=== PATIENT | female | born 1990 | race Caucasian/White ===

== ENCOUNTER 2016-10-17 07:53 | Emergency (ER) | payer MEDICAID ==
[~2016-10-17] VITALS: Ht 157.5 cm; Wt 125.2 kg
[2016-10-17 08:08] VITALS: BP 139/75
--- NOTE | 2016-10-17 08:11 | NUR ---
PATIENT AMBULATED TO BED 3 AT THIS TIME.
--- NOTE | 2016-10-17 08:12 | NUR ---
26F BIB SELF C/O ACHING LEFT JAW PAIN, NON-RADIATING, 9/10 X YESTERDAY; PT DENIES TRAUMA OR INJURY TO FACE; NO SWELLING OR REDNESS NOTED TO SITE AT THIS TIME; PT STATED " I HAVE TWO TEETH ON THE TOP AND BOTTOM LEFT THAT NEED TO BE REMOVED. I THINK IT MAY BE FROM THAT"; A&OX4, PERRL, BL LUNG SOUNDS CLEAR, RR EVEN/UNLABORED, PT DENIES N/V/D AT THIS TIME; STEADY GAIT; PT RESTING IN BED W/ HOB ELEVATED AND IN LOWEST POSITION; POSITIONED FOR COMFORT; ER MD MADE AWARE OF STATUS. WILL CONTINUE TO MONITOR.
--- NOTE | 2016-10-17 08:23 | NUR ---
ER MD DR. FABIAN EVALUATING PT AT BEDSIDE.
[2016-10-17] MEDS ORDERED: KETOROLAC 60 MG/2 ML VIAL IM ONE (08:25)
[2016-10-17 08:46] VITALS: BP 120/73
--- NOTE | 2016-10-17 08:46 | NUR ---
Patient discharged with v/s stable. Written and verbal after care instructions given and explained. Patient alert, oriented and verbalized understanding of instructions. Ambulatory with steady gait. All questions addressed prior to discharge. ID band removed. Patient advised to follow up with PMD. Rx of NORCO 5MG-325MG TAB & MOTRIN 800MG given. Patient educated on indication of medication including possible reaction and side effects. Opportunity to ask questions provided and answered.
== END 2016-10-17 08:46 | disposition home or self-care (01) ==
LOC: MED 07:53
DX: R59.0 Localized enlarged lymph nodes (principal); F17.200 Nicotine dependence, unspecified, uncomplicated; I10 Essential (primary) hypertension; Z86.73 Personal history of transient ischemic attack (TIA), and cerebral infarction without residual deficits
CPT/HCPCS: 96372; 99283; J1885

== ENCOUNTER 2020-02-09 17:56 | Emergency (ER) | payer MEDICAID ==
[~2020-02-09] VITALS: Ht 162.6 cm; Wt 85.3 kg
[2020-02-09 18:00] VITALS: BP 128/85
--- NOTE | 2020-02-09 18:08 | NUR ---
Pt ambulated to restroom for collection of urine
--- NOTE | 2020-02-09 18:08 | NUR ---
PT AMB TO BED 7.
--- NOTE | 2020-02-09 18:14 | NUR ---
29 y/o female from home c/o sudden onset abd pain. Pt c/o abd pain s/p eating shrimp. Abd soft, round, nontender to palp. Pt states she "forced" herself to vomit due to pain. RR even and unlabored, awake and alert. vss medhx: stroke, seizures
[2020-02-09 18:34] VITALS: BP 128/85
--- NOTE | 2020-02-09 18:35 | NUR ---
Patient discharged with v/s stable. Written and verbal after care instructions given and explained. Patient alert, oriented and verbalized understanding of instructions. Ambulatory with steady gait. All questions addressed prior to discharge. ID band removed. Patient advised to follow up with PMD. Rx of pepcid 20mg, zofran 4mg, norco 5mg given. Patient educated on indication of medication including possible reaction and side effects. Opportunity to ask questions provided and answered.
== END 2020-02-09 18:35 | disposition home or self-care (01) ==
LOC: MED 17:56
DX: R10.9 Unspecified abdominal pain (principal); I10 Essential (primary) hypertension; Z86.73 Personal history of transient ischemic attack (TIA), and cerebral infarction without residual deficits
CPT/HCPCS: 99283

== ENCOUNTER 2020-03-17 19:27 | Emergency (ER) | payer MEDICAID ==
[~2020-03-17] VITALS: Ht 162.6 cm; Wt 82.1 kg
[2020-03-17 19:45] VITALS: BP 98/46
[2020-03-17] MEDS ORDERED: NACL 0.9% 1,000 ML IV ONE (20:05)
[2020-03-17] MEDS ORDERED: KETOROLAC 30 MG/ML VIAL IVP ONE (20:05)
--- NOTE | 2020-03-17 20:20 | NUR ---
ADMITTED PT ON BED 12. PT A/A/OX4, AMBULATORY. PT C/O ABDOMINAL PAIN WHICH STARTED AFTER THE PT ATE SALAD AND HAD 3 EPISODES OF LOOSE BM,DARK IN COLOR PER PT. ALSO STATED THAT SHE IS TAKING IRON PILLS FOR ANEMIA. OTHERWISE NO SIGN AND SYMPTOMS OF DISTRESS NOTED AT THIS TIME. STARTED AN IV ON THE LEFT HAND GAUGE 20.ALL LABS DRAWN ORDERED. TORADOL GIVEN FOR ABDOMINAL PAIN 04/30 ORDERED.IVF NS INFUSING ORDERED.
--- NOTE | 2020-03-17 20:30 | NUR ---
ALL LAB WORKS COLLECTED AND SENT TO THE LAB.
[2020-03-17 20:43] LABS: BASOPHILS % (AUTO) 0.4 % (0.0-2.0); EOSINOPHILS # (AUTO) 0.3 K/uL (0-0.4); EOSINOPHILS % (AUTO) 4.5 % (0.0-4.0); HEMATOCRIT 33.9 % (36-48); HEMOGLOBIN 10.7 g/dL (12.0-16.0); LYMPHOCYTES # (AUTO) 1.7 K/uL (2.5-16.5); LYMPHOCYTES % (AUTO) 22.1 % (20.5-51.1); MEAN CORPUSCULAR HEMOGLOBIN 23 pg (27-31); MEAN CORPUSCULAR HGB CONC 31 g/dL (33-37); MEAN CORPUSCULAR VOLUME 73.5 fL (80-94); MONOCYTES # (AUTO) 0.4 K/uL (0.8-1.0); MONOCYTES % (AUTO) 5.4 % (1.7-9.3); NEUTROPHILS # (AUTO) 5.2 K/uL (1.8-7.7); NEUTROPHILS % (AUTO) 67.6 % (42.2-75.2); PLATELET COUNT (AUTO) 237 K/uL (140-450); RED BLOOD CELL COUNT(AUTO) 4.62 MIL/uL (4.20-5.40); RED CELL DISTRIBUTION WIDTH 20.1 % (11.6-13.7); WHITE BLOOD COUNT (AUTO) 7.7 K/uL (4.8-10.8)
[2020-03-17 20:54] LABS: ALBUMIN 3.8 g/dL (3.4-5.0); ANION GAP 13.3 (8-16); CARBON DIOXIDE 26.5 mmol/L (21-32); CREATININE 0.8 mg/dL (0.6-1.3); POTASSIUM 3.8 mmol/L (3.5-5.1); TOTAL BILIRUBIN 0.2 mg/dL (0.0-1.0)
--- NOTE | 2020-03-17 20:57 | NUR ---
Ultrasound at bedside.
--- NOTE | 2020-03-17 20:59 | NUR ---
UTS AT THE BEDSIDE.
--- NOTE | 2020-03-17 21:10 | NUR ---
NS BOLUS FINISHED.
--- NOTE | 2020-03-17 21:22 | NUR ---
PT WALKED TO THE BATHROOM AND VOIDED.
[2020-03-17 22:45] VITALS: BP 98/46
--- NOTE | 2020-03-17 22:45 | NUR ---
Patient discharged with v/s stable. Written and verbal after care instructions given and explained. Patient alert, oriented and verbalized understanding of instructions. Ambulatory with steady gait. All questions addressed prior to discharge. ID band removed. Patient advised to follow up with PMD. Rx of ZOFRAN & MOTRIN given. Patient educated on indication of medication including possible reaction and side effects. Opportunity to ask questions provided and answered.
== END 2020-03-17 22:45 | disposition home or self-care (01) ==
LOC: MED 19:27
DX: N83.201 Unspecified ovarian cyst, right side (principal); K52.9 Noninfective gastroenteritis and colitis, unspecified; I10 Essential (primary) hypertension; R56.9 Unspecified convulsions; Z98.890 Other specified postprocedural states; Z86.73 Personal history of transient ischemic attack (TIA), and cerebral infarction without residual deficits
CPT/HCPCS: 36415; 76856; 80053; 85025; 96361; 96374; 99284; J1885; J7030; Q0092

== ENCOUNTER 2020-03-30 19:45 | Emergency (ER) | payer MEDICAID ==
[~2020-03-30] VITALS: Ht 154.9 cm; Wt 82.1 kg
[2020-03-30 19:50] VITALS: BP 136/78
--- NOTE | 2020-03-30 19:53 | NUR ---
ambulated to bed 11 with steady gait.
--- NOTE | 2020-03-30 20:05 | NUR ---
30 YO F BIB SELF FOR C/C OF 10/10 MID EPIGASTRIC PAIN X1.5 HOURS. PT STATES SHE HAS HAD N/V/D SINCE THE PAIN STARTED "OUT OF NO WHERE." DENIES FEVER, COUGH, SOB AND BODY ACHES. LBM WAS 1 HR AGO, LOOSE STOOL. PT STATES SHE TOOK IBUPROFEN 800MG AND 4MG OF ZOFRAN 45 MIN AGO WITHOUT RELIEF OF SYMPTOMS. PT RECENTLY HAS D/C FROM [facility] ER FOR OVARIAN CYSTS, STATES HER PAIN IS THE SAME THEN. NKA MED HX:OVARIAN CYST RX: ZOFRAN PRN
--- NOTE | 2020-03-30 20:08 | NUR ---
PT AMBULATED TO WITH STEADY GAIT TO PROVIDE URINE SAMPLE
[2020-03-30] MEDS ORDERED: KETOROLAC 15 MG/ML VIAL IVP ONE (20:40)
[2020-03-30] MEDS ORDERED: NACL 0.9% 1,000 ML IV ONE (20:40)
[2020-03-30] MEDS ORDERED: ONDANSETRON 4 MG/2 ML VIAL IVP ONE (20:40)
[2020-03-30] MEDS ORDERED: PIPERACILLIN/TAZOBACTAM 3.375 GM VIAL IV ONE (21:00)
[2020-03-30] MEDS ORDERED: cefTRIAXone 1,000 MG VIAL ONE (21:03)
--- NOTE | 2020-03-30 21:15 | NUR ---
PT STATES HER PAIN IS NOW 01/28. DENIES NEEDING FURTHUR PAIN MEDS.
--- NOTE | 2020-03-30 21:35 | NUR ---
ERMD AT BEDSIDE
[2020-03-30 22:14] VITALS: BP 129/73
--- NOTE | 2020-03-30 22:14 | NUR ---
Patient discharged with v/s stable. Written and verbal after care instructions given and explained. Patient alert, oriented and verbalized understanding of instructions. Ambulatory with steady gait. All questions addressed prior to discharge. ID band removed. Patient advised to follow up with PMD. Rx of CEPHALEXIN, EXTRA STRENGTH TYLENOL given. Patient educated on indication of medication including possible reaction and side effects. Opportunity to ask questions provided and answered.
== END 2020-03-30 22:14 | disposition home or self-care (01) ==
LOC: MED 19:45
DX: K52.9 Noninfective gastroenteritis and colitis, unspecified (principal); N39.0 Urinary tract infection, site not specified; I63.9 Cerebral infarction, unspecified; N83.209 Unspecified ovarian cyst, unspecified side; R56.9 Unspecified convulsions; Z98.890 Other specified postprocedural states
CPT/HCPCS: 81002; 81025; 96361; 96365; 96375; 99284; J0696; J1885; J2405; J7030; J2543

== ENCOUNTER 2020-04-27 12:24 | Emergency (ER) | payer MEDICAID ==
[~2020-04-27] VITALS: Ht 162.6 cm; Wt 81.2 kg
[2020-04-27 12:36] VITALS: BP 119/70
--- NOTE | 2020-04-27 12:49 | NUR ---
PT IN FOR N/V X1DAY AND ABDOMINAL PAIN. PATIENT CURRENTLY WITH 10/10 PAIN THROUGHOUT ABDOMEN, WITH TENDERNESS AND GUARDING ON ASSESSMENT. PT ALSO STATES DIARRHEA YESTERDAY BUT NONE TODAY. PT STATES MENSTRAL CYCLE IS LATE BUT DENIES POSSIBILITY THAT SHE IS . RESTING IN BED AT THIS TIME WITHOUT ANY SIGNS OF DISTRESS.
[2020-04-27] MEDS: KETOROLAC 30 MG/ML VIAL IM ONE (13:22)
--- NOTE | 2020-04-27 13:57 | NUR ---
PT REXAMINED, STATES NO RELIEF FROM PAIN MEDS.
[2020-04-27 14:22] VITALS: BP 120/72
--- NOTE | 2020-04-27 14:22 | NUR ---
Patient discharged with v/s stable. Written and verbal after care instructions given and explained. Patient alert, oriented and verbalized understanding of instructions. Ambulatory with steady gait. All questions addressed prior to discharge. ID band removed. Patient advised to follow up with PMD. Rx of NAPROSIDABENTYL given. Patient educated on indication of medication including possible reaction and side effects. Opportunity to ask questions provided and answered.
== END 2020-04-27 14:22 | disposition home or self-care (01) ==
LOC: MED 12:24
DX: R10.9 Unspecified abdominal pain (principal); R11.2 Nausea with vomiting, unspecified; R19.7 Diarrhea, unspecified; I63.9 Cerebral infarction, unspecified; R56.9 Unspecified convulsions; Z98.890 Other specified postprocedural states
CPT/HCPCS: 81002; 81025; 96372; 99283; J1885

== ENCOUNTER 2020-07-12 17:49 | Emergency (ER) | payer MEDICAID ==
[~2020-07-12] VITALS: Ht 162.6 cm; Wt 79.4 kg
[2020-07-12 17:54] VITALS: BP 137/74
--- NOTE | 2020-07-12 18:02 | NUR ---
30/F BIB SELF C/O NAUSEA, GENERALIZED ABDOMINAL PAIN X TODAY. PMH: GALL STONE
--- NOTE | 2020-07-12 19:00 | NUR ---
PATIENT CALLED [facility] ON CHAIR , NO RESPONSE
--- NOTE | 2020-07-12 19:00 | NUR ---
Silvia irvin in [facility] - 07/13/20 at 0620 by LILIA CALLED FOR THE SECOND TIME , NO RESPONSE
--- NOTE | 2020-07-12 19:00 | NUR ---
PATIENT LEFT WITHOUT BEING SEEN BY DR. TAYLOR. NO FURTHER CARE PROVIDED FOR PATIENT.
--- NOTE | 2020-07-12 19:05 | NUR ---
CALLED FOR THE SECOND TIME NO RESPONSE
--- NOTE | 2020-07-12 19:10 | NUR ---
CALLED FOR THE THIRD TIME, NO RESPONSE
== END 2020-07-12 19:00 | disposition left against medical advice (07) ==
LOC: MED 17:49
DX: Z53.21 Procedure and treatment not carried out due to patient leaving prior to being seen by health care provider (principal)
CPT/HCPCS: 81002; 81025

== ENCOUNTER 2020-10-28 15:18 | Emergency (ER) | payer MEDICAID ==
[~2020-10-28] VITALS: Ht 162.6 cm; Wt 80.7 kg
[2020-10-28 15:22] VITALS: BP 114/74
--- NOTE | 2020-10-28 15:38 | NUR ---
FERNANDA ALVAREZ AT BEDSIDE EXAMINING PT
--- NOTE | 2020-10-28 15:39 | NUR ---
30 F BIB self c/c 10 abd pain that radiates to the back x1 day aggravated by eating, neck pain, bloating especially after meals, right arm pain, blurry vision today at work, and constipation x1week. Pt reports nause but denies vomitting and diarrhea, SOB, chest pain. PMH: Gallstones, pre-eclampsia, stroke and seizure during SurHX: 4 C-sections NKA LMP: End of September RX: Denies
[2020-10-28] MEDS ORDERED: HYDROcodone/APAP 5/325 MG 1 TAB TAB PO ONE (15:45)
--- NOTE | 2020-10-28 15:57 | NUR ---
LAB AT BEDSIDE
--- NOTE | 2020-10-28 15:59 | NUR ---
US AT BEDSIDE
--- NOTE | 2020-10-28 16:02 | NUR ---
lab at bedside.
--- NOTE | 2020-10-28 16:02 | NUR ---
rad at bedside.
[2020-10-28] MEDS ORDERED: ACETAMINOPHEN/CODEINE 300/30MG 1 TAB PO ONE (16:05)
[2020-10-28 16:22] LABS: BASOPHILS % (AUTO) 0.8 % (0.0-2.0); EOSINOPHILS # (AUTO) 0.1 K/uL (0-0.4); EOSINOPHILS % (AUTO) 2.8 % (0.0-4.0); HEMATOCRIT 30.8 % (36-48); HEMOGLOBIN 9.6 g/dL (12.0-16.0); LYMPHOCYTES % (AUTO) 38.7 % (20.5-51.1); MEAN CORPUSCULAR HEMOGLOBIN 23 pg (27-31); MEAN CORPUSCULAR HGB CONC 31 g/dL (33-37); MEAN CORPUSCULAR VOLUME 74.3 fL (80-94); MONOCYTES # (AUTO) 0.5 K/uL (0.8-1.0); MONOCYTES % (AUTO) 9.3 % (1.7-9.3); NEUTROPHILS # (AUTO) 2.4 K/uL (1.8-7.7); NEUTROPHILS % (AUTO) 48.4 % (42.2-75.2); PLATELET COUNT (AUTO) 247 K/uL (140-450); RED BLOOD CELL COUNT(AUTO) 4.14 MIL/uL (4.20-5.40); RED CELL DISTRIBUTION WIDTH 17.6 % (11.6-13.7)
[2020-10-28 16:35] LABS: ALBUMIN 3.6 g/dL (3.4-5.0); CARBON DIOXIDE 26.5 mmol/L (21-32); CREATININE 0.7 mg/dL (0.6-1.3); POTASSIUM 3.5 mmol/L (3.5-5.1); TOTAL BILIRUBIN 0.2 mg/dL (0.0-1.0)
[2020-10-28] MEDS ORDERED: KETOROLAC 30 MG/ML VIAL IM ONE (17:20)
[2020-10-28] MEDS ORDERED: MORPHINE SULFATE 4 MG/ML SYR IM ONE (17:20)
--- NOTE | 2020-10-28 17:23 | NUR ---
Pt being taken to CT.
--- NOTE | 2020-10-28 17:37 | NUR ---
pt returned from ct via wheelchair
[2020-10-28] MEDS ORDERED: ACET-9800 PO (18:16)
[2020-10-28] MEDS ORDERED: POLY17PD46 PO (18:16)
[2020-10-28] MEDS ORDERED: MAG-27 PO (18:16)
[2020-10-28 18:23] VITALS: BP 105/60
--- NOTE | 2020-10-28 18:23 | NUR ---
Patient discharged with v/s stable. Written and verbal after care instructions given and explained. Patient alert, oriented and verbalized understanding of instructions. Ambulatory with steady gait. All questions addressed prior to discharge. ID band removed. Patient advised to follow up with PMD. Rx of Acetaminophen, Mylanta Maximum Strength, Miralax given. Patient educated on indication of medication including possible reaction and side effects. Opportunity to ask questions provided and answered.
== END 2020-10-28 18:23 | disposition home or self-care (01) ==
LOC: MED 15:18
DX: K80.80 Other cholelithiasis without obstruction (principal); Z86.73 Personal history of transient ischemic attack (TIA), and cerebral infarction without residual deficits
CPT/HCPCS: 36415; 74176; 76705; 80053; 81002; 81025; 83690; 85025; 99285; J2270; J1885

== ENCOUNTER 2020-11-23 14:49 | Emergency (ER) | payer MEDICAID ==
[~2020-11-23 14:49] MED LIST: ACET-9800 PO; MAG-27 PO; POLY17PD46 PO
--- NOTE | 2020-11-23 15:09 | NUR ---
PATIENT LEFT WITHOUT BEING TRIAGED.
== END 2020-11-23 15:09 | disposition left against medical advice (07) ==
LOC: MED 14:49
DX: Z53.21 Procedure and treatment not carried out due to patient leaving prior to being seen by health care provider (principal)

== ENCOUNTER 2021-01-27 18:17 | Emergency (ER) | payer MEDICAID ==
[~2021-01-27] VITALS: Ht 162.6 cm; Wt 79.4 kg
[2021-01-27 18:48] VITALS: BP 118/100
--- NOTE | 2021-01-27 19:45 | NUR ---
RECEIVED IN BED 2 FROM LOBBY WITH C/O HEADACHE AND FACIAL PAIN SINCEE YESTERDAY . PT STATES FACIAL PAIN BEGIND IN UPPER GUMS . SKIN IS PINK/WARM/DRY; AAOX4 WITH EVEN AND STEADY GAIT; PT DENIES ANY FEVER, CP, SOB, OR COUGH AT THIS TIME; VSS; PATIENT POSITIONED FOR COMFORT; HOB ELEVATED; BED DOWN. ER MD MADE AWARE OF PT STATUS.
[2021-01-27] MEDS ORDERED: HYDROcodone/APAP 5/325 MG 1 TAB TAB PO ONE (20:25)
[2021-01-27] MEDS ORDERED: ONDANSETRON 4 MG ODT PO ONE (20:25)
--- NOTE | 2021-01-27 20:40 | NUR ---
MEDICATED ORDERED FOR PAIN. PT IS ANXIOUS TO LEAVE.
[2021-01-27] MEDS ORDERED: ACET-8386 PO (21:16)
[2021-01-27] MEDS ORDERED: PENI500T20 PO (21:16)
[2021-01-27 21:22] VITALS: BP 118/100
--- NOTE | 2021-01-27 21:22 | NUR ---
Patient discharged with v/s stable. Written and verbal after care instructions given and explained. Patient alert, oriented and verbalized understanding of instructions. Ambulatory with steady gait. All questions addressed prior to discharge. ID band removed. Patient advised to follow up with PMD. Rx of HYDROCODONE & PEN VK given. Patient educated on indication of medication including possible reaction and side effects. Opportunity to ask questions provided and answered.
== END 2021-01-27 21:22 | disposition home or self-care (01) ==
LOC: MED 18:17
DX: R22.0 Localized swelling, mass and lump, head (principal); R51.9 Headache, unspecified; Z86.73 Personal history of transient ischemic attack (TIA), and cerebral infarction without residual deficits; Z79.899 Other long term (current) drug therapy
CPT/HCPCS: 99283; Q0162

== ENCOUNTER 2021-07-11 08:29 | Emergency (ER) | payer MEDICAID, SELFPAY ==
[~2021-07-11] VITALS: Ht 162.6 cm; Wt 99.8 kg
[~2021-07-11 08:29] MED LIST changes: +ACET-8386 PO; +PENI500T20 PO
[2021-07-11 08:44] VITALS: BP 121/80
--- NOTE | 2021-07-11 08:56 | NUR ---
PT AMBULATED TO BED STEADY GAIT
--- NOTE | 2021-07-11 09:00 | NUR ---
DR CODY AT BEDSIDE EXAMINING PT
--- NOTE | 2021-07-11 09:03 | NUR ---
31 Y/O FEMALE WITH DYSURIA, LOWER BACK PAIN, SUBJECTIVE FEVER, CHILLS, LANGE, VAGINAL ODOR/DISCHARGE X2 DAYS. DENIES N/V AT THIS TIME. PT STATES 10/10 PAIN, WITH CHEST PAIN, COUGH AND CONGESTION. LUNG SOUNDS CLEAR. ABD SOFT NON TENDER. VSS. PMH: GALLSTONES NKA
[2021-07-11] MEDS ORDERED: KETOROLAC 30 MG/ML VIAL IM ONE (09:10)
--- NOTE | 2021-07-11 09:15 | NUR ---
ALEX SWAB COLLECTED AND SENT TO LAB
--- NOTE | 2021-07-11 09:21 | NUR ---
XRAY AT BEDSIDE
[2021-07-11] MEDS ORDERED: ROBAC PO (10:25)
[2021-07-11] MEDS ORDERED: NAPR-54 PO (10:25)
[2021-07-11 10:42] VITALS: BP 121/80
--- NOTE | 2021-07-11 10:42 | NUR ---
Patient discharged with v/s stable. Written and verbal after care instructions given and explained. Patient alert, oriented and verbalized understanding of instructions. Ambulatory with steady gait. All questions addressed prior to discharge. ID band removed. Patient advised to follow up with PMD. Rx of NAPROSYN AND GUAIFENESIN given. Patient educated on indication of medication including possible reaction and side effects. Opportunity to ask questions provided and answered.
== END 2021-07-11 10:42 | disposition home or self-care (01) ==
LOC: MED 08:29
DX: U07.1 COVID-19 (principal); F17.210 Nicotine dependence, cigarettes, uncomplicated; Z86.73 Personal history of transient ischemic attack (TIA), and cerebral infarction without residual deficits; Z79.899 Other long term (current) drug therapy; Z20.822 Contact with and (suspected) exposure to COVID-19
CPT/HCPCS: 71045; 81002; 81025; 87426; 96372; 99284; J1885; Q0092

== ENCOUNTER 2021-09-28 07:21 | Emergency (ER) | payer MEDICAID, SELFPAY ==
[~2021-09-28] VITALS: Ht 162.6 cm; Wt 97.6 kg
[~2021-09-28 07:21] MED LIST changes: +NAPR-54 PO; +ROBAC PO
[2021-09-28 07:30] VITALS: BP 122/74
--- NOTE | 2021-09-28 07:34 | NUR ---
PATIENT AMBULATED TO BED 12.
[2021-09-28] MEDS ORDERED: IBUPROFEN 400 MG TAB PO ONE (08:00)
--- NOTE | 2021-09-28 08:10 | NUR ---
31 Y/O FEMALE C/O ABD PAIN X 1 DAY. 8/10 PRESSURE WITH C/O NAUSEA AND CONSTIPATION. ABD SOFT NON TENDER. MED HX: DENIES NKA
[2021-09-28] MEDS ORDERED: NAPR-1704 PO (08:24)
--- NOTE | 2021-09-28 08:30 | NUR ---
Patient discharged, stable. Written and verbal after care instructions given and explained. Patient alert, oriented and verbalized understanding of instructions. Ambulatory with steady gait. All questions addressed prior to discharge. ID band removed. Patient advised to follow up with PMD. Rx of NAPROXEN given. Patient educated on indication of medication including possible reaction and side effects. Opportunity to ask questions provided and answered.
[2021-09-28 08:31] VITALS: BP 122/74
[2021-09-28 09:01] LABS: APPEARANCE,URINE HAZY (CLEAR); BILIRUBIN,URINE NEGATIVE (NEGATIVE); BLOOD, URINE NEGATIVE (NEGATIVE); COLOR,URINE YELLOW (YELLOW); LEUKOCYTE ESTERASE ,URINE NEGATIVE (NEGATIVE); NITRITE, URINE POSITIVE (NEGATIVE); PH,URINE 7.5 (5.0-9.0); UGLUCOSE NEGATIVE (NEGATIVE)
[2021-09-28 09:55] LABS: RBC,URINE 0-5 /HPF (0-5)
[2021-09-28 09:56] LABS: CALCIUM OXALATE CRYSTALS,UR None Seen /HPF (None Seen); COARSE GRANULAR CASTS,URINE None Seen /LPF (None Seen); FINE GRANULAR CASTS,URINE None Seen /LPF (None Seen); HYALINE CASTS, URINE None Seen /LPF (None Seen); OTHER CASTS, URINE None Seen /LPF (None Seen); OTHER CRYSTALS,URINE None Seen /HPF (None Seen); RED BLOOD CELL CASTS,URINE None Seen /LPF (None Seen); TRICHOMONAS,URINE None Seen /HPF (None Seen); TRIPLE PHOSPHATE CRYSTAL,UR None Seen /HPF (None Seen); URIC ACID CRYSTALS,URINE None Seen /HPF (None Seen); URINE AMORPHOUS URATE None Seen /HPF (None Seen); WAXY CASTS,URINE None Seen /LPF (None Seen); WBC,URINE 0-5 /HPF (0-5); YEAST,URINE None Seen /HPF (None Seen)
== END 2021-09-28 08:31 | disposition home or self-care (01) ==
LOC: MED 07:21
DX: R10.2 Pelvic and perineal pain (principal); R11.0 Nausea; R14.0 Abdominal distension (gaseous); F17.210 Nicotine dependence, cigarettes, uncomplicated; Z98.890 Other specified postprocedural states; Z79.899 Other long term (current) drug therapy
CPT/HCPCS: 36415; 81001; 81025; 87086; 87491; 99283

== ENCOUNTER 2021-11-06 11:29 | Emergency (ER) | payer MEDICAID ==
[~2021-11-06] VITALS: Ht 162.6 cm; Wt 96.6 kg
[~2021-11-06 11:29] MED LIST changes: +NAPR-1704 PO
[2021-11-06 11:36] VITALS: BP 128/82
--- NOTE | 2021-11-06 11:57 | NUR ---
pt c/o abdominal pain, states pain has improved and requesting a work noted.
[2021-11-06] MEDS ORDERED: ONDA-188 PO (12:13)
[2021-11-06] MEDS ORDERED: ACET-10509 PO (12:13)
--- NOTE | 2021-11-06 12:14 | NUR ---
Patient discharged with v/s stable. Written and verbal after care instructions given and explained. Patient verbalized understanding. Ambulatory with steady gait. All questions addressed prior to discharge. Advised to follow up with PMD.
== END 2021-11-06 12:14 | disposition home or self-care (01) ==
LOC: MED 11:29
DX: R10.9 Unspecified abdominal pain (principal); Z79.899 Other long term (current) drug therapy; Z86.73 Personal history of transient ischemic attack (TIA), and cerebral infarction without residual deficits
CPT/HCPCS: 81025; 99283

== ENCOUNTER 2021-11-28 11:29 | Emergency (ER) | payer MEDICAID ==
[~2021-11-28] VITALS: Ht 165.1 cm; Wt 98.0 kg
[~2021-11-28 11:29] MED LIST changes: +ACET-10509 PO; +ONDA-188 PO
[2021-11-28 11:35] VITALS: BP 127/95
--- NOTE | 2021-11-28 11:38 | NUR ---
PT AMBULATED TO ER BED 11 WITH A STEADY GAIT.
--- NOTE | 2021-11-28 11:39 | NUR ---
31 Y/O FEMALE C/O THROAT PAIN 03/31 X2DAYS DESCRIBES TIGHTNESS, STATES "IT FEELS LIKE SOMETHING IS STUCK THERE". DENIES N/V. DENIES FEVER/CHILLS. SPO2 100% ON RA. DENIES PMH NKA
[2021-11-28] MEDS ORDERED: IBUP-2213 PO (12:37)
--- NOTE | 2021-11-28 12:39 | NUR ---
LI JOHNSON COLLECTED AND WALKED TO LAB
[2021-11-28 12:52] VITALS: BP 127/95
--- NOTE | 2021-11-28 12:53 | NUR ---
Patient discharged with v/s stable. Written and verbal after care instructions given FOR PHARYNGITIS AND HOARSNESS and explained. Patient alert, oriented and verbalized understanding of instructions. Ambulatory with steady gait. All questions addressed prior to discharge. ID band removed. Patient advised to follow up with PMD. Rx of IBUPORFEN given. Patient educated on indication of medication including possible reaction and side effects. Opportunity to ask questions provided and answered.
== END 2021-11-28 12:52 | disposition home or self-care (01) ==
LOC: MED 11:29
DX: J02.9 Acute pharyngitis, unspecified (principal); Z20.822 Contact with and (suspected) exposure to COVID-19; R49.0 Dysphonia; Z01.84 Encounter for antibody response examination; Z86.73 Personal history of transient ischemic attack (TIA), and cerebral infarction without residual deficits; Z79.899 Other long term (current) drug therapy
CPT/HCPCS: 99283

== ENCOUNTER 2022-08-27 09:38 | Emergency (ER) | payer MEDICAID ==
[~2022-08-27] VITALS: Ht 167.6 cm; Wt 114.8 kg
[~2022-08-27 09:38] MED LIST changes: -ACET-8386 PO; +ACET-8905 PO; +IBUP-2213 PO
[2022-08-27 09:44] VITALS: BP 122/73
--- NOTE | 2022-08-27 09:47 | NUR ---
Patient ambulated to bed 7.
--- NOTE | 2022-08-27 10:05 | NUR ---
32 y/o female bib self with c/o cough, subjective fever and diarrhea x yesterday. Patient is taking Tylenol for symptoms. Patient is requesting a COVID test because her nieces are sick with similar symptoms. Medical History: Denies NKDA
--- NOTE | 2022-08-27 10:50 | NUR ---
X-Ray at bedside.
[2022-08-27] MEDS ORDERED: BENZ200C4 PO (11:22)
[2022-08-27] MEDS ORDERED: ALBU0.0912 IH (11:22)
[2022-08-27 11:42] VITALS: BP 143/81
--- NOTE | 2022-08-27 11:42 | NUR ---
Patient discharged with v/s stable. Written and verbal after care instructions given. Patient alert, oriented and verbalized understanding of instructions. Ambulatory with steady gait. All questions addressed prior to discharge. ID band removed. Patient advised to follow up with PMD. Rx of Proventil and Benzonatate given. Opportunity to ask questions provided and answered. WORK NOTE HANDED TO PATIENT.
--- NOTE | 2022-08-27 12:00 | NUR ---
The patient's care was reviewed and supervised by Mily Rendon RN.
== END 2022-08-27 11:42 | disposition home or self-care (01) ==
LOC: MED 09:38
DX: J06.9 Acute upper respiratory infection, unspecified (principal); Z20.822 Contact with and (suspected) exposure to COVID-19; R05.9 Cough, unspecified; R50.9 Fever, unspecified; M79.10 Myalgia, unspecified site; F17.210 Nicotine dependence, cigarettes, uncomplicated; Z79.899 Other long term (current) drug therapy; Z86.73 Personal history of transient ischemic attack (TIA), and cerebral infarction without residual deficits
CPT/HCPCS: 71045; 87426; 87804; 99284; Q0092

== ENCOUNTER 2022-11-27 09:31 | Emergency (ER) | payer MEDICAID ==
[~2022-11-27] VITALS: Ht 162.6 cm; Wt 122.2 kg
[~2022-11-27 09:31] MED LIST changes: +ALBU0.0912 IH; +BENZ200C4 PO
[2022-11-27 09:45] VITALS: BP 142/80
--- NOTE | 2022-11-27 09:52 | NUR ---
The patient's care was reviewed and supervised by JA FANG RN.
[2022-11-27] MEDS ORDERED: ACET-10509 PO (10:08)
[2022-11-27] MEDS ORDERED: PROM118S5 PO (10:08)
[2022-11-27] MEDS ORDERED: IBUP-2213 PO (10:08)
[2022-11-27] MEDS ORDERED: BENZ-300 PO (10:08)
--- NOTE | 2022-11-27 10:24 | NUR ---
SPECIMENS FOR THROAT AND NOSE FLUE AND STREP COLLECTED AND SENT TO LAB ACCORDING TO PROTOCOL
--- NOTE | 2022-11-27 10:34 | NUR ---
Patient discharged with v/s stable. Written and verbal after care instructions FOR PHARYNGITIS given and explained. Patient alert, oriented and verbalized understanding of instructions. Ambulatory with steady gait. All questions addressed prior to discharge. ID band removed. Patient advised to follow up with PMD. Rx of IBUPROFEN,BENZOCAINE,TYLENOL XTRA STRENGTH AND PROMETHAZINE given. Opportunity to ask questions provided and answered.
== END 2022-11-27 10:34 | disposition home or self-care (01) ==
LOC: MED 09:31
DX: J02.9 Acute pharyngitis, unspecified (principal); B97.89 Other viral agents as the cause of diseases classified elsewhere; Z20.822 Contact with and (suspected) exposure to COVID-19; Z79.899 Other long term (current) drug therapy; Z86.73 Personal history of transient ischemic attack (TIA), and cerebral infarction without residual deficits
CPT/HCPCS: 87081; 99283

== ENCOUNTER 2023-01-28 07:30 | Emergency (ER) | payer MEDICAID ==
[~2023-01-28] VITALS: Ht 167.6 cm; Wt 106.1 kg
[~2023-01-28 07:30] MED LIST changes: +BENZ-300 PO; +PROM118S5 PO
[2023-01-28 08:05] VITALS: BP 107/73; PULSE 86; RESP 18; TEMP 97.6; O2SAT 98
--- NOTE | 2023-01-28 10:05 | NUR ---
PT IN CHAIR C. COVID AND FLU SWABS SENT TO THE LAB.
[2023-01-28] MEDS ORDERED: NIRM1TAB5 PO (11:12)
[2023-01-28] MEDS ORDERED: BENZ200C4 PO (11:13)
--- NOTE | 2023-01-28 11:27 | NUR ---
MD WITH PT TO DISCUSS TEST RESULTS AND [facility] PLAN
== END 2023-01-28 11:27 | disposition home or self-care (01) ==
LOC: MED 07:30
DX: U07.1 COVID-19 (principal); F17.210 Nicotine dependence, cigarettes, uncomplicated; Z79.899 Other long term (current) drug therapy; Z86.73 Personal history of transient ischemic attack (TIA), and cerebral infarction without residual deficits
CPT/HCPCS: 99283

== ENCOUNTER 2023-07-18 02:15 | Emergency (ER) | payer SELFPAY ==
[~2023-07-18] VITALS: Ht 157.5 cm; Wt 130.6 kg
[~2023-07-18 02:15] MED LIST changes: +NIRM1TAB5 PO
[2023-07-18 03:10] VITALS: BP 105/76; PULSE 102; RESP 20; TEMP 97.9; O2SAT 98
[2023-07-18] MEDS ORDERED: ACETAMINOPHEN 325 MG TAB PO ONE (03:15)
[2023-07-18] MEDS ORDERED: ACETAMINOPHEN EXTRA STRENGTH 500 MG TAB ONE (03:19)
[2023-07-18 03:46] LABS: FLU B ANTIGEN NEGATIVE (NEGATIVE)
[2023-07-18 03:47] LABS: FLU A ANTIGEN POSITIVE (NEGATIVE)
[2023-07-18] MEDS ORDERED: ONDANSETRON 4 MG ODT PO ONE (04:40)
[2023-07-18] MEDS ORDERED: KETOROLAC 30 MG/ML VIAL IM ONE (04:40)
[2023-07-18] MEDS ORDERED: ONDA-188 PO (04:42)
[2023-07-18] MEDS ORDERED: TAM75 PO (04:42)
[2023-07-18 05:03] VITALS: BP 105/76; PULSE 102; RESP 20; TEMP 97.9; O2SAT 98
== END 2023-07-18 05:03 | disposition home or self-care (01) ==
LOC: MED 02:15
DX: J06.9 Acute upper respiratory infection, unspecified (principal); I10 Essential (primary) hypertension; G51.0 Bell's palsy; Z20.822 Contact with and (suspected) exposure to COVID-19; R00.0 Tachycardia, unspecified; Z86.69 Personal history of other diseases of the nervous system and sense organs; Z86.73 Personal history of transient ischemic attack (TIA), and cerebral infarction without residual deficits; Z79.899 Other long term (current) drug therapy; Z79.1 Long term (current) use of non-steroidal anti-inflammatories (NSAID); Z79.2 Long term (current) use of antibiotics
CPT/HCPCS: 87426; 87804; 96372; 99283; J1885; Q0162

== ENCOUNTER 2023-11-21 19:09 | Emergency (ER) | payer MEDICAID ==
[~2023-11-21] VITALS: Ht 162.6 cm; Wt 133.0 kg
[~2023-11-21 19:09] MED LIST changes: +NAPR-337 PO; -NAPR-54 PO; +TAM75 PO
[2023-11-21 19:15] VITALS: BP 120/74; PULSE 78; RESP 17; TEMP 97.7; O2SAT 100
[2023-11-21 19:37] VITALS: O2SAT 100
[2023-11-21 20:12] LABS: BASOPHILS % (AUTO) 0.5 % (0.0-2.0); EOSINOPHILS # (AUTO) 0.1 K/uL (0-0.4); EOSINOPHILS % (AUTO) 0.8 % (0.0-4.0); HEMATOCRIT 38.9 % (36-48); HEMOGLOBIN 12.8 g/dL (12.0-16.0); LYMPHOCYTES # (AUTO) 1.9 K/uL (2.5-16.5); LYMPHOCYTES % (AUTO) 19.7 % (20.5-51.1); MEAN CORPUSCULAR HEMOGLOBIN 26 pg (27-31); MEAN CORPUSCULAR HGB CONC 33 g/dL (33-37); MEAN CORPUSCULAR VOLUME 78.7 fL (80-94); MONOCYTES # (AUTO) 0.5 K/uL (0.8-1.0); MONOCYTES % (AUTO) 5.2 % (1.7-9.3); NEUTROPHILS # (AUTO) 7.1 K/uL (1.8-7.7); NEUTROPHILS % (AUTO) 73.8 % (42.2-75.2); PLATELET COUNT (AUTO) 251 K/uL (140-450); RED BLOOD CELL COUNT(AUTO) 4.95 MIL/uL (4.20-5.40); WHITE BLOOD COUNT (AUTO) 9.7 K/uL (4.8-10.8)
[2023-11-21 20:28] LABS: ANION GAP 14.6 (8-16); CALCIUM 9.1 mg/dL (8.5-10.1); CARBON DIOXIDE 25.6 mmol/L (21-32); CREATININE 0.9 mg/dL (0.6-1.3); POTASSIUM 4.2 mmol/L (3.5-5.1)
[2023-11-21 20:42] LABS: MAGNESIUM 1.9 mg/dL (1.8-2.4); PHOSPHORUS 3.5 mg/dL (2.5-4.9); THYROID STIMULATING HORMONE 6.02 uIU/mL (0.34-3.74)
[2023-11-21 21:01] VITALS: BP 148/83; PULSE 68; RESP 16; TEMP 98.2; O2SAT 100
== END 2023-11-21 21:01 | disposition home or self-care (01) ==
LOC: MED 19:09
DX: R00.2 Palpitations (principal); R42 Dizziness and giddiness; I10 Essential (primary) hypertension; Z86.69 Personal history of other diseases of the nervous system and sense organs; Z79.899 Other long term (current) drug therapy
CPT/HCPCS: 36415; 80048; 81025; 83735; 84100; 84443; 84484; 85025; 93005; 99284

== ENCOUNTER 2023-11-27 22:50 | Emergency (ER) | payer MEDICAID ==
[~2023-11-27] VITALS: Ht 162.6 cm; Wt 132.9 kg
[2023-11-27 22:55] VITALS: BP 118/87; PULSE 69; RESP 18; TEMP 97.8; O2SAT 99
[2023-11-27 23:18] LABS: BASOPHILS % (AUTO) 0.6 % (0.0-2.0); EOSINOPHILS # (AUTO) 0.1 K/uL (0-0.4); EOSINOPHILS % (AUTO) 1.2 % (0.0-4.0); HEMATOCRIT 38.7 % (36-48); HEMOGLOBIN 12.6 g/dL (12.0-16.0); LYMPHOCYTES # (AUTO) 1.9 K/uL (2.5-16.5); LYMPHOCYTES % (AUTO) 27.1 % (20.5-51.1); MEAN CORPUSCULAR HEMOGLOBIN 26 pg (27-31); MEAN CORPUSCULAR HGB CONC 33 g/dL (33-37); MEAN CORPUSCULAR VOLUME 79.3 fL (80-94); MONOCYTES # (AUTO) 0.5 K/uL (0.8-1.0); MONOCYTES % (AUTO) 6.9 % (1.7-9.3); NEUTROPHILS # (AUTO) 4.6 K/uL (1.8-7.7); NEUTROPHILS % (AUTO) 64.2 % (42.2-75.2); PLATELET COUNT (AUTO) 245 K/uL (140-450); RED BLOOD CELL COUNT(AUTO) 4.88 MIL/uL (4.20-5.40); RED CELL DISTRIBUTION WIDTH 16.7 % (11.6-13.7); WHITE BLOOD COUNT (AUTO) 7.1 K/uL (4.8-10.8)
[2023-11-27 23:27] LABS: ANION GAP 10.6 (8-16); CARBON DIOXIDE 28.9 mmol/L (21-32); CREATININE 0.8 mg/dL (0.6-1.3); POTASSIUM 3.5 mmol/L (3.5-5.1)
[2023-11-27 23:48] LABS: APPEARANCE,URINE SL CLOUDY (CLEAR); BILIRUBIN,URINE NEGATIVE (NEGATIVE); BLOOD, URINE NEGATIVE (NEGATIVE); COLOR,URINE YELLOW (YELLOW); LEUKOCYTE ESTERASE ,URINE NEGATIVE (NEGATIVE); NITRITE, URINE NEGATIVE (NEGATIVE); PROTEIN,URINE NEGATIVE (NEGATIVE); UGLUCOSE NEGATIVE (NEGATIVE)
[2023-11-27 23:54] LABS: AMPHETAMINE, URINE NEGATIVE ng/ml (NEG <=1000); BARBITURATE, URINE NEGATIVE ng/ml (NEG <=200); BENZODIAZEPINE, URINE NEGATIVE ng/mL (NEG <=200); CANNABINOID, URINE NEGATIVE ng/mL (NEG <=50); COCAINE, URINE NEGATIVE ng/mL (NEG <=300); OPIATE, URINE NEGATIVE ng/mL (NEG <=2000); PHENCYCLIDINE SCREEN,URINE NEGATIVE ng/mL (NEG <=25)
[2023-11-28] MEDS: KETOROLAC 30 MG/ML VIAL IM ONE (00:47)
[2023-11-28] MEDS: ONDANSETRON 4 MG ODT PO ONE (00:50)
[2023-11-28] MEDS: LORazepam 1 MG TAB PO ONE (00:50)
[2023-11-28] MEDS ORDERED: ATA10 PO (01:29)
[2023-11-28 01:59] VITALS: BP 98/60; PULSE 78; RESP 18; TEMP 97.6; O2SAT 100
== END 2023-11-28 01:59 | disposition home or self-care (01) ==
LOC: MED 22:50
DX: R10.84 Generalized abdominal pain (principal); R51.9 Headache, unspecified; R06.00 Dyspnea, unspecified; R06.02 Shortness of breath; R07.9 Chest pain, unspecified; I10 Essential (primary) hypertension; Z79.899 Other long term (current) drug therapy
CPT/HCPCS: 36415; 74176; 80048; 80305; 81003; 81025; 84484; 85025; 85379; 93005; 96372; 99285; J1885; Q0162

== ENCOUNTER 2024-02-12 13:15 | Emergency (ER) | payer MEDICAID ==
[~2024-02-12] VITALS: Ht 175.3 cm; Wt 134.3 kg
[~2024-02-12 13:15] MED LIST changes: +ATA10 PO
[2024-02-12 13:25] VITALS: BP 136/79; PULSE 77; RESP 16; TEMP 97.1; O2SAT 97
[2024-02-12] MEDS: KETOROLAC 30 MG/ML VIAL IM ONE (14:10)
[2024-02-12] MEDS ORDERED: GABA300C PO (14:50)
[2024-02-12] MEDS ORDERED: LID5T TP (14:50)
[2024-02-12] MEDS ORDERED: IBUP-2213 PO (14:54)
[2024-02-12 15:40] VITALS: BP 131/70; PULSE 70; RESP 18; TEMP 98.3; O2SAT 99
== END 2024-02-12 15:40 | disposition home or self-care (01) ==
LOC: MED 13:15
DX: M79.2 Neuralgia and neuritis, unspecified (principal); I10 Essential (primary) hypertension; Z86.69 Personal history of other diseases of the nervous system and sense organs; Z79.899 Other long term (current) drug therapy
CPT/HCPCS: 73060; 73080; 81025; 96372; 99284; J1885

== ENCOUNTER 2024-02-16 08:20 | Emergency (ER) | payer MEDICAID ==
[~2024-02-16] VITALS: Ht 162.6 cm; Wt 134.3 kg
[~2024-02-16 08:20] MED LIST changes: +GABA300C PO; +LID5T TP
[2024-02-16 08:25] VITALS: BP 121/75; PULSE 66; RESP 20; TEMP 97.9; O2SAT 98
[2024-02-16 09:15] LABS: BASOPHILS % (AUTO) 0.7 % (0.0-2.0); EOSINOPHILS # (AUTO) 0.1 K/uL (0-0.4); EOSINOPHILS % (AUTO) 1.3 % (0.0-4.0); HEMATOCRIT 37.1 % (36-48); LYMPHOCYTES # (AUTO) 1.3 K/uL (2.5-16.5); LYMPHOCYTES % (AUTO) 22.7 % (20.5-51.1); MEAN CORPUSCULAR HEMOGLOBIN 26 pg (27-31); MEAN CORPUSCULAR HGB CONC 33 g/dL (33-37); MEAN CORPUSCULAR VOLUME 79.5 fL (80-94); MONOCYTES # (AUTO) 0.3 K/uL (0.8-1.0); NEUTROPHILS # (AUTO) 3.8 K/uL (1.8-7.7); NEUTROPHILS % (AUTO) 69.3 % (42.2-75.2); PLATELET COUNT (AUTO) 253 K/uL (140-450); RED BLOOD CELL COUNT(AUTO) 4.66 MIL/uL (4.20-5.40); RED CELL DISTRIBUTION WIDTH 15.9 % (11.6-13.7); WHITE BLOOD COUNT (AUTO) 5.5 K/uL (4.8-10.8)
[2024-02-16 09:48] LABS: ANION GAP 12.3 (8-16); CALCIUM 8.9 mg/dL (8.5-10.1); CARBON DIOXIDE 25.2 mmol/L (21-32); CREATININE 0.8 mg/dL (0.6-1.3); POTASSIUM 4.5 mmol/L (3.5-5.1)
[2024-02-16] MEDS ORDERED: PRED20TA5 PO (10:21)
[2024-02-16] MEDS ORDERED: ROB PO (10:21)
== END 2024-02-16 10:38 | disposition home or self-care (01) ==
LOC: MED 08:20
DX: J06.9 Acute upper respiratory infection, unspecified (principal); R07.89 Other chest pain; I10 Essential (primary) hypertension; Z86.69 Personal history of other diseases of the nervous system and sense organs; Z79.2 Long term (current) use of antibiotics; Z79.899 Other long term (current) drug therapy
CPT/HCPCS: 36415; 71045; 80048; 81025; 84484; 84703; 85025; 93005; 99285

== ENCOUNTER 2024-03-09 19:02 | Emergency (ER) | payer MEDICAID ==
[~2024-03-09] VITALS: Ht 162.6 cm; Wt 136.1 kg
[~2024-03-09 19:02] MED LIST changes: -ACET-10509 PO; +ACET500T99 PO; +PRED20TA5 PO; +ROB PO
[2024-03-09 19:22] VITALS: BP 142/72; PULSE 79; RESP 14; TEMP 97.3; O2SAT 99
[2024-03-09 19:40] VITALS: O2SAT 99
[2024-03-09 20:14] LABS: BASOPHILS # (AUTO) 0.1 K/uL (0.00-0.22); BASOPHILS % (AUTO) 0.7 % (0.0-2.0); EOSINOPHILS % (AUTO) 0.5 % (0.0-4.0); HEMATOCRIT 36.9 % (36-48); HEMOGLOBIN 11.9 g/dL (12.0-16.0); LYMPHOCYTES # (AUTO) 1.4 K/uL (2.5-16.5); LYMPHOCYTES % (AUTO) 17.3 % (20.5-51.1); MEAN CORPUSCULAR HEMOGLOBIN 26 pg (27-31); MEAN CORPUSCULAR HGB CONC 32 g/dL (33-37); MEAN CORPUSCULAR VOLUME 79.8 fL (80-94); MONOCYTES # (AUTO) 0.5 K/uL (0.8-1.0); MONOCYTES % (AUTO) 5.7 % (1.7-9.3); NEUTROPHILS # (AUTO) 6.3 K/uL (1.8-7.7); NEUTROPHILS % (AUTO) 75.8 % (42.2-75.2); PLATELET COUNT (AUTO) 304 K/uL (140-450); RED BLOOD CELL COUNT(AUTO) 4.63 MIL/uL (4.20-5.40); RED CELL DISTRIBUTION WIDTH 15.8 % (11.6-13.7); WHITE BLOOD COUNT (AUTO) 8.3 K/uL (4.8-10.8)
[2024-03-09 20:26] LABS: ANION GAP 15.5 (8-16); CALCIUM 8.9 mg/dL (8.5-10.1); CARBON DIOXIDE 23.2 mmol/L (21-32); CREATININE 0.8 mg/dL (0.6-1.3); POTASSIUM 3.7 mmol/L (3.5-5.1)
[2024-03-09 20:42] LABS: THYROID STIMULATING HORMONE 14.03 uIU/mL (0.34-3.74)
[2024-03-09 20:55] LABS: FLU A ANTIGEN negative (NEGATIVE); FLU B ANTIGEN NEGATIVE (NEGATIVE)
[2024-03-09 21:06] LABS: APPEARANCE,URINE CLEAR (CLEAR); BILIRUBIN,URINE NEGATIVE (NEGATIVE); BLOOD, URINE NEGATIVE (NEGATIVE); COLOR,URINE YELLOW (YELLOW); LEUKOCYTE ESTERASE ,URINE NEGATIVE (NEGATIVE); NITRITE, URINE NEGATIVE (NEGATIVE); PROTEIN,URINE NEGATIVE (NEGATIVE); UGLUCOSE NEGATIVE (NEGATIVE); UROBILINOGEN,URINE 0.2 EU/dL (0.2 - 1)
== END 2024-03-09 23:22 | disposition home or self-care (01) ==
LOC: MED 19:02
DX: F41.9 Anxiety disorder, unspecified (principal); E03.8 Other specified hypothyroidism; D50.9 Iron deficiency anemia, unspecified; Z20.822 Contact with and (suspected) exposure to COVID-19; R42 Dizziness and giddiness; R00.2 Palpitations; R19.7 Diarrhea, unspecified; R07.89 Other chest pain; R06.02 Shortness of breath; R51.9 Headache, unspecified; Z79.899 Other long term (current) drug therapy
CPT/HCPCS: 36415; 71045; 80048; 81003; 81025; 82948; 83880; 84439; 84443; 84481; 84484; 85025; 93005; 99285

== ENCOUNTER 2024-04-13 17:16 | Emergency (ER) | payer MEDICAID ==
[~2024-04-13] VITALS: Ht 157.5 cm; Wt 132.0 kg
[2024-04-13 17:44] VITALS: BP 119/79; PULSE 74; RESP 15; TEMP 98.6; O2SAT 80
== END 2024-04-13 20:28 | disposition left against medical advice (07) ==
LOC: MED 17:16
DX: R11.0 Nausea (principal); R51.9 Headache, unspecified; R42 Dizziness and giddiness; I10 Essential (primary) hypertension; Z53.21 Procedure and treatment not carried out due to patient leaving prior to being seen by health care provider

== ENCOUNTER 2024-04-16 11:24 | Emergency (ER) | payer MEDICAID ==
[~2024-04-16] VITALS: Ht 157.5 cm; Wt 132.0 kg
[2024-04-16 11:35] VITALS: BP 117/75; PULSE 75; RESP 18; TEMP 97.9; O2SAT 97
[2024-04-16] MEDS: KETOROLAC 30 MG/ML VIAL IM ONE (14:52)
[2024-04-16] MEDS ORDERED: ATA25 PO (14:55)
== END 2024-04-16 15:18 | disposition home or self-care (01) ==
LOC: MED 11:24
DX: S00.93XA Contusion of unspecified part of head, initial encounter (principal); F41.9 Anxiety disorder, unspecified; I10 Essential (primary) hypertension; Z86.69 Personal history of other diseases of the nervous system and sense organs; Z79.899 Other long term (current) drug therapy; W01.0XXA Fall on same level from slipping, tripping and stumbling without subsequent striking against object, initial encounter; Y92.009 Unspecified place in unspecified non-institutional (private) residence as the place of occurrence of the external cause; Y93.89 Activity, other specified; Y99.8 Other external cause status
CPT/HCPCS: 81025; 96372; 99283; J1885

== ENCOUNTER 2024-04-21 20:39 | Emergency (ER) | payer MEDICAID ==
[~2024-04-21] VITALS: Ht 157.5 cm; Wt 131.1 kg
[~2024-04-21 20:39] MED LIST changes: +ATA25 PO
[2024-04-21 20:52] VITALS: BP 124/84; PULSE 82; RESP 18; TEMP 98; O2SAT 99
[2024-04-21] MEDS ORDERED: ONDA-188 SL (22:50)
[2024-04-21] MEDS ORDERED: ACET-9234 PO (22:50)
[2024-04-21] MEDS ORDERED: IBUP-2218 PO (22:50)
[2024-04-21] MEDS: METOCLOPRAMIDE 10 MG/2 ML INJ VIAL IM ONE (22:56)
[2024-04-21] MEDS: KETOROLAC 30 MG/ML VIAL IM ONE (22:57)
[2024-04-22 00:52] VITALS: O2SAT 99
== END 2024-04-21 23:20 | disposition home or self-care (01) ==
LOC: MED 20:39
DX: F07.81 Postconcussional syndrome (principal); I10 Essential (primary) hypertension; Z79.899 Other long term (current) drug therapy
CPT/HCPCS: 96372; 99284; J1885; J2765

== ENCOUNTER 2024-04-29 18:02 | Emergency (ER) | payer MEDICAID ==
[~2024-04-29] VITALS: Ht 157.5 cm; Wt 130.9 kg
[~2024-04-29 18:02] MED LIST changes: +ACET-9234 PO; +IBUP-2218 PO; +ONDA-188 SL
[2024-04-29 18:12] VITALS: BP 111/73; PULSE 78; RESP 16; TEMP 97.8; O2SAT 98
[2024-04-29] MEDS: NACL 0.9% 1,000 ML IV ONE (19:48)
[2024-04-29] MEDS: KETOROLAC 30 MG/ML VIAL IVP ONE (19:50)
[2024-04-29 19:53] LABS: BASOPHILS % (AUTO) 0.7 % (0.0-2.0); EOSINOPHILS # (AUTO) 0.1 K/uL (0-0.4); EOSINOPHILS % (AUTO) 1.3 % (0.0-4.0); HEMATOCRIT 40.6 % (36-48); HEMOGLOBIN 13.1 g/dL (12.0-16.0); LYMPHOCYTES # (AUTO) 1.8 K/uL (2.5-16.5); LYMPHOCYTES % (AUTO) 26.6 % (20.5-51.1); MEAN CORPUSCULAR HEMOGLOBIN 26 pg (27-31); MEAN CORPUSCULAR HGB CONC 32 g/dL (33-37); MEAN CORPUSCULAR VOLUME 81.1 fL (80-94); MONOCYTES # (AUTO) 0.4 K/uL (0.8-1.0); MONOCYTES % (AUTO) 6.6 % (1.7-9.3); NEUTROPHILS # (AUTO) 4.3 K/uL (1.8-7.7); NEUTROPHILS % (AUTO) 64.8 % (42.2-75.2); PLATELET COUNT (AUTO) 272 K/uL (140-450); RED CELL DISTRIBUTION WIDTH 16.2 % (11.6-13.7); WHITE BLOOD COUNT (AUTO) 6.6 K/uL (4.8-10.8)
[2024-04-29] MEDS: METOCLOPRAMIDE 10 MG/2 ML INJ VIAL IVP ONE (19:53)
[2024-04-29 20:08] LABS: ALBUMIN 3.7 g/dL (3.4-5.0); ANION GAP 10.6 (8-16); CARBON DIOXIDE 28.5 mmol/L (21-32); CREATININE 0.9 mg/dL (0.6-1.3); POTASSIUM 4.1 mmol/L (3.5-5.1); TOTAL BILIRUBIN 0.4 mg/dL (0.0-1.0); TOTAL PROTEIN, SERUM 8.4 g/dL (6.4-8.2)
[2024-04-29 22:35] VITALS: BP 111/73; PULSE 78; RESP 16; TEMP 97.8; O2SAT 98
== END 2024-04-29 22:35 | disposition left against medical advice (07) ==
LOC: MED 18:02
DX: R07.9 Chest pain, unspecified (principal); R10.13 Epigastric pain; R11.0 Nausea; R00.2 Palpitations; R61 Generalized hyperhidrosis; R68.83 Chills (without fever); I10 Essential (primary) hypertension; Z79.899 Other long term (current) drug therapy
CPT/HCPCS: 36415; 71045; 80053; 81025; 83690; 85025; 93005; 96361; 96374; 96375; 99285; J1885; J2765; J7030

== ENCOUNTER 2024-05-05 09:40 | Emergency (ER) | payer MEDICAID ==
[~2024-05-05] VITALS: Ht 162.6 cm; Wt 129.3 kg
[2024-05-05 09:51] VITALS: BP 109/72; PULSE 62; RESP 20; TEMP 97; O2SAT 98
[2024-05-05 11:17] LABS: BASOPHILS % (AUTO) 0.9 % (0.0-2.0); EOSINOPHILS # (AUTO) 0.1 K/uL (0-0.4); EOSINOPHILS % (AUTO) 1.5 % (0.0-4.0); HEMOGLOBIN 12.6 g/dL (12.0-16.0); LYMPHOCYTES # (AUTO) 1.1 K/uL (2.5-16.5); LYMPHOCYTES % (AUTO) 24.4 % (20.5-51.1); MEAN CORPUSCULAR HEMOGLOBIN 26 pg (27-31); MEAN CORPUSCULAR HGB CONC 33 g/dL (33-37); MEAN CORPUSCULAR VOLUME 79.7 fL (80-94); MONOCYTES # (AUTO) 0.3 K/uL (0.8-1.0); MONOCYTES % (AUTO) 5.5 % (1.7-9.3); NEUTROPHILS # (AUTO) 3.1 K/uL (1.8-7.7); NEUTROPHILS % (AUTO) 67.7 % (42.2-75.2); PLATELET COUNT (AUTO) 246 K/uL (140-450); RED BLOOD CELL COUNT(AUTO) 4.76 MIL/uL (4.20-5.40); RED CELL DISTRIBUTION WIDTH 15.5 % (11.6-13.7); WHITE BLOOD COUNT (AUTO) 4.6 K/uL (4.8-10.8)
[2024-05-05 11:29] LABS: ANION GAP 9.5 (8-16); CALCIUM 8.5 mg/dL (8.5-10.1); CARBON DIOXIDE 29.3 mmol/L (21-32); CREATININE 0.9 mg/dL (0.6-1.3); POTASSIUM 3.8 mmol/L (3.5-5.1)
[2024-05-05 12:32] VITALS: BP 101/65; PULSE 58; RESP 17; O2SAT 99
== END 2024-05-05 12:30 | disposition home or self-care (01) ==
LOC: MED 09:40
DX: R07.89 Other chest pain (principal); F41.1 Generalized anxiety disorder; I10 Essential (primary) hypertension; E03.9 Hypothyroidism, unspecified; Z86.69 Personal history of other diseases of the nervous system and sense organs; Z79.899 Other long term (current) drug therapy
CPT/HCPCS: 36415; 71045; 80048; 84484; 85025; 93005; 99285

== ENCOUNTER 2024-05-11 16:37 | Emergency (ER) | payer MEDICAID ==
[~2024-05-11] VITALS: Ht 154.9 cm; Wt 129.3 kg
[2024-05-11 16:42] VITALS: BP 129/90; PULSE 77; RESP 20; TEMP 97.3; O2SAT 98
[2024-05-11 18:10] LABS: BASOPHILS # (AUTO) 0.1 K/uL (0.00-0.22); BASOPHILS % (AUTO) 0.9 % (0.0-2.0); EOSINOPHILS % (AUTO) 0.7 % (0.0-4.0); HEMATOCRIT 37.8 % (36-48); HEMOGLOBIN 12.3 g/dL (12.0-16.0); LYMPHOCYTES # (AUTO) 1.6 K/uL (2.5-16.5); LYMPHOCYTES % (AUTO) 28.4 % (20.5-51.1); MEAN CORPUSCULAR HEMOGLOBIN 26 pg (27-31); MEAN CORPUSCULAR HGB CONC 33 g/dL (33-37); MEAN CORPUSCULAR VOLUME 80.3 fL (80-94); MONOCYTES # (AUTO) 0.4 K/uL (0.8-1.0); MONOCYTES % (AUTO) 6.6 % (1.7-9.3); NEUTROPHILS # (AUTO) 3.7 K/uL (1.8-7.7); NEUTROPHILS % (AUTO) 63.4 % (42.2-75.2); PLATELET COUNT (AUTO) 246 K/uL (140-450); RED BLOOD CELL COUNT(AUTO) 4.71 MIL/uL (4.20-5.40); RED CELL DISTRIBUTION WIDTH 15.4 % (11.6-13.7); WHITE BLOOD COUNT (AUTO) 5.8 K/uL (4.8-10.8)
[2024-05-11 18:21] LABS: ANION GAP 8.3 (8-16); CARBON DIOXIDE 30.2 mmol/L (21-32); CREATININE 0.9 mg/dL (0.6-1.3); POTASSIUM 3.5 mmol/L (3.5-5.1)
[2024-05-11 18:24] LABS: INR 1.01 (0.8-1.2); PARTIAL THROMBOPLASTIN TIME 36.5 secs (22-35.6); PROTHROMBIN TIME 10.6 secs (10.8-13.4)
[2024-05-11] MEDS: ACETAMINOPHEN EXTRA STRENGTH 500 MG TAB PO ONE (19:09)
[2024-05-11 19:10] VITALS: BP 129/90; PULSE 77; RESP 20; TEMP 97.3; O2SAT 98
[2024-05-11] MEDS: KETOROLAC 30 MG/ML VIAL IM ONE (19:10)
== END 2024-05-11 20:08 | disposition home or self-care (01) ==
LOC: MED 16:37
DX: R07.9 Chest pain, unspecified (principal); F41.9 Anxiety disorder, unspecified; E66.9 Obesity, unspecified; I10 Essential (primary) hypertension; Z86.69 Personal history of other diseases of the nervous system and sense organs; Z86.39 Personal history of other endocrine, nutritional and metabolic disease; Z79.899 Other long term (current) drug therapy
CPT/HCPCS: 36415; 71045; 80048; 81025; 83880; 84484; 85025; 85610; 85730; 93005; 96372; 99285; J1885; Q0092

== ENCOUNTER 2024-05-19 11:10 | Emergency (ER) | payer MEDICAID ==
[~2024-05-19] VITALS: Ht 152.4 cm; Wt 128.4 kg
[2024-05-19 11:22] VITALS: BP 122/83; PULSE 80; RESP 17; TEMP 98.6; O2SAT 96
[2024-05-19] MEDS: LOPERAMIDE 2 MG CAP PO ONE (13:02)
[2024-05-19] MEDS: ONDANSETRON 4 MG ODT PO ONE (13:04)
[2024-05-19] MEDS: KETOROLAC 30 MG/ML VIAL IM ONE (13:04)
[2024-05-19 13:05] LABS: BASOPHILS % (AUTO) 0.7 % (0.0-2.0); EOSINOPHILS % (AUTO) 0.6 % (0.0-4.0); HEMATOCRIT 41.8 % (36-48); HEMOGLOBIN 13.5 g/dL (12.0-16.0); LYMPHOCYTES # (AUTO) 1.2 K/uL (2.5-16.5); LYMPHOCYTES % (AUTO) 16.5 % (20.5-51.1); MEAN CORPUSCULAR HEMOGLOBIN 26 pg (27-31); MEAN CORPUSCULAR HGB CONC 32 g/dL (33-37); MEAN CORPUSCULAR VOLUME 80.7 fL (80-94); MONOCYTES # (AUTO) 0.3 K/uL (0.8-1.0); MONOCYTES % (AUTO) 4.8 % (1.7-9.3); NEUTROPHILS # (AUTO) 5.6 K/uL (1.8-7.7); NEUTROPHILS % (AUTO) 77.4 % (42.2-75.2); PLATELET COUNT (AUTO) 286 K/uL (140-450); RED BLOOD CELL COUNT(AUTO) 5.19 MIL/uL (4.20-5.40); RED CELL DISTRIBUTION WIDTH 15.7 % (11.6-13.7); WHITE BLOOD COUNT (AUTO) 7.2 K/uL (4.8-10.8)
[2024-05-19 13:45] LABS: APPEARANCE,URINE CLEAR (CLEAR); BILIRUBIN,URINE NEGATIVE (NEGATIVE); BLOOD, URINE NEGATIVE (NEGATIVE); COLOR,URINE YELLOW (YELLOW); LEUKOCYTE ESTERASE ,URINE NEGATIVE (NEGATIVE); NITRITE, URINE NEGATIVE (NEGATIVE); PROTEIN,URINE NEGATIVE (NEGATIVE); UGLUCOSE NEGATIVE (NEGATIVE)
[2024-05-19 13:49] LABS: ANION GAP 11.1 (8-16); CALCIUM 9.1 mg/dL (8.5-10.1); CARBON DIOXIDE 29.4 mmol/L (21-32); CREATININE 0.8 mg/dL (0.6-1.3); POTASSIUM 3.5 mmol/L (3.5-5.1)
[2024-05-19 13:50] LABS: ALBUMIN 3.9 g/dL (3.4-5.0); BILIRUBIN,DIRECT 0.1 mg/dL (0.0-0.3); TOTAL BILIRUBIN 0.4 mg/dL (0.0-1.0); TOTAL PROTEIN, SERUM 8.7 g/dL (6.4-8.2)
[2024-05-19 14:01] LABS: FLU B ANTIGEN NEGATIVE (NEGATIVE)
[2024-05-19 14:02] LABS: FLU A ANTIGEN NEGATIVE (NEGATIVE)
[2024-05-19] MEDS ORDERED: BEN10 PO (14:13)
[2024-05-19] MEDS ORDERED: ONDA-188 SL (14:13)
[2024-05-19] MEDS ORDERED: IMO2 PO (14:14)
== END 2024-05-19 14:43 | disposition home or self-care (01) ==
LOC: MED 11:10
DX: B34.9 Viral infection, unspecified (principal); R03.0 Elevated blood-pressure reading, without diagnosis of hypertension; Z20.822 Contact with and (suspected) exposure to COVID-19; I10 Essential (primary) hypertension; E11.9 Type 2 diabetes mellitus without complications; Z86.39 Personal history of other endocrine, nutritional and metabolic disease; Z86.69 Personal history of other diseases of the nervous system and sense organs; Z79.899 Other long term (current) drug therapy
CPT/HCPCS: 36415; 74176; 80048; 80076; 81003; 81025; 83690; 85025; 87081; 87426; 87804; 96372; 99285; J1885; Q0162